=== PATIENT | female | born 1990 | race Caucasian/White ===

== ENCOUNTER 2023-08-02 15:47 | Outpatient (OUT) | payer OTHER, SELFPAY ==
--- NOTE | 2023-08-02 15:50 | US_ITS ---
The [address] [address] Patient Name: TAMICA YOUNG MRN: [id number] date: 1990 Sex: F Assigned Patient Location: US Current Patient Location: Accession/Order Number: [id number] Exam Date: 08/02/2023 16:04 Report Date: 08/03/2023 07:14 At the request of: ANABELLE RUTHERFORD Procedure: US pelvis w/ transvaginal EXAMINATION: US pelvis w/ transvaginal HISTORY: endometriosis N80.9 COMPARISON: No relevant comparison available. FINDINGS: Transabdominal and transvaginal images The uterus is surgically absent The right ovary measures 3.8 x 2.1 x 2.5 cm. Normal color and Doppler flow. Complex avascular structure measuring 2.5 x 1.7 x 2.3 cm. The left ovary measures 3.2 x 1.6 x 2.1 cm. Normal color and Doppler flow No ascites US/US pelvis w/ transvaginal IMPRESSION: 2.5 cm right ovarian lesion, consider complex cyst, hemorrhagic cyst, functional cyst or endometrioma. Electronically authenticated by: ZAKIA FATIMA Date: 08/03/2023 07:14
== END 2023-08-02 15:48 | disposition home or self-care (01) ==
LOC: US 15:47
PROVIDERS: PCP Family Medicine; Visit Provider Obstetrics & Gynecology
DX: N80.9 Endometriosis, unspecified (principal); N94.10 Unspecified dyspareunia; N83.291 Other ovarian cyst, right side
CPT/HCPCS: 76830; 76856

== ENCOUNTER 2024-10-01 07:57 | Outpatient (OUT) | payer OTHER, SELFPAY ==
--- NOTE | 2024-10-01 08:45 | XR_ITS ---
[address] [address] Patient Name: TAMICA YOUNG MRN: [id number] date: 1990 Sex: F Assigned Patient Location: [facility] Current Patient Location: [facility] Accession/Order Number: [id number] Exam Date: 10/01/2024 10:01 Report Date: 10/01/2024 10:02 At the request of: ANABELLE RUTHERFORD DO Procedure: XR chest 2V XR chest 2V 10/01/2024 8:48 AM SIGNS AND SYMPTOMS: ^Preop exam ^N PROTOCOL: Frontal and lateral graphs of the chest COMPARISON: 09/15/2022 FINDINGS: The trachea is midline. The heart and mediastinal structures are within normal limits. The lung parenchyma is clear. The bony thorax is intact. There is evidence of prior cholecystectomy. XR/XR chest 2V IMPRESSION: No acute cardiopulmonary pathology. Impression dictated by: Drew England M.D. 10/01/2024 10:02 AM Dictation Location: [place] [address] Electronically authenticated by: [id number] Y Date: 10/01/2024 10:02
== END 2024-10-01 07:58 | disposition home or self-care (01) ==
PROVIDERS: PCP Family Medicine; Visit Provider Obstetrics & Gynecology
DX: Z01.810 Encounter for preprocedural cardiovascular examination (principal); N80.9 Endometriosis, unspecified; R10.2 Pelvic and perineal pain; N83.201 Unspecified ovarian cyst, right side; Z90.710 Acquired absence of both cervix and uterus
CPT/HCPCS: 71046

== ENCOUNTER 2024-10-05 08:57 | Day surgery (SDC) | payer OTHER, SELFPAY ==
[2024-10-01 08:41] VITALS: BP 111/76; PULSE 80; TEMP 36.4; O2SAT 99; BMI 24.1
[2024-10-05] VITALS (19 sets, daily range): BP systolic 94–120; BP diastolic 53–79; PULSE 51–100; TEMP 36.2–36.4; O2SAT 96–100; BMI 24.2
[2024-10-05 09:05] LABS: Basophils Percent Auto 0.6 % (0.2-2.0); Eosinophils Absolute Auto 0.1 10^3/uL (0.0-0.7); Eosinophils Percent Auto 2.6 % (0.9-7.0); Hematocrit 40.9 % (36.0-48.0); Hemoglobin 13.6 g/dL (12.0-16.0); Immature Granulocytes Abs Auto 0.01 10^3/uL (0.00-0.03); Immature Granulocytes Pct Auto 0.2 % (0.0-0.5); Lymphocytes Absolute Auto 1.6 10^3/uL (1.2-3.8); Lymphocytes Percent Auto 33.4 % (20.5-60.0); Mean Corpuscular HGB Conc 33.3 g/dL (29.9-35.2); Mean Corpuscular Hemoglobin 32.2 pg (26.7-34.0); Mean Corpuscular Volume 96.9 fL (81.0-99.0); Mean Platelet Volume 11.1 fL (9.5-13.5); Monocytes Absolute Auto 0.3 10^3/uL (0.3-0.8); Neutrophils Absolute Auto 2.6 10^3/uL (1.4-6.5); Neutrophils Percent Auto 56.2 % (43.0-75.0); Platelet Count 181 10^3/uL (150-450); Red Blood Count 4.22 10^6/uL (4.20-5.40); Red Cell Distribution Width 12.1 % (11.0-15.0); White Blood Count 4.7 10^3/uL (4.0-11.0)
--- NOTE | 2024-10-05 12:34 | PM.ONB ---
Brief Operative Note Date of procedure: 10/05/24 Pre-op diagnosis general: pelvic pain, ho endometriosis Post-op diagnosis: same as pre-op Procedure: NAME OF PROCEDURE: [diagnostic laparoscopy , extensive lysis of omental adhesions from the anterior abdominal wall] PROCEDURE: The patient was taken back to the Operating Room where she was placed in dorsal lithotomy position after given general anesthesia. The patient was prepped and draped in normal sterile fashion. A sponge stick was placed into the patient's vagina. Attention was turned to the patient's abdomen, where a small umbilical incision was made. The fascia was tented using Agnieszka clamps and the fascia was entered sharply. Confirmation of intraabdominal placement of the 10 mm port was confirmed under direct visualization using a laparoscope. The patient's abdomen was then insufflated using CO2 gas with approximately 4 liters. A second port was placed left laterally, this was done under direct visualization with a 5 mm port. Survey of the patient's abdomen demonstrated normal liver and gallbladder. Survey of the patient's pelvic anatomy demonstrated normal appearing rt and lt ovary and absent tubes and uterus No endometrial implants could be noted, no evidence of any pelvic disease was seen, normal appearing pelvic cavity. extenive adhesions of the omentum to the anterior abdominal wall, lysis of adhesions with ligasure, excellent hemostasis, All instruments were removed from the patient's abdomen. The patient's abdomen was deinsufflated of CO2 gas. The patient tolerated the procedure well. Sponge stick was removed from the patient's vagina. The patient's infraumbilical fascia was closed using #0 Vicryl on a GI needle. The patient's skin was closed laterally and infraumbilically using 4-0 Vicryl. The patient tolerated the procedure well. Sponge, lap and needle counts were correct x 2. The patient was taken to Recovery Room in stable condition. Anesthesia: TONJAA Surgeon: Kendrick Almonte Diversified Crops Farmer: Karishma Becerra Estimated blood loss (mL): 5 Pathology: none sent Condition: stable Disposition: PACU Urinary Catheter Management Urinary Catheter Management Urethral: Cath placed during this visit: no
[2024-10-05] MEDS: HYDROMORPHONE HCL 0.5 MG/0.5 ML SYRINGE IV ×2 (12:58→13:22)
[2024-10-05] MEDS: LACTATED RINGER'S SOLUTION 1,000 ML 50 ML IV (13:36)
[2024-10-05] MEDS: ONDANSETRON PF 4 MG/2 ML VIAL IV (14:34)
--- NOTE | 2024-10-05 14:35 | PC.NURSE ---
patient became nauseated gave dose of zofran as ordered by Dr. Gallardo
--- NOTE | 2024-10-05 14:54 | PC.NURSE ---
Patient states she feels a little better with the nausea. But not great. She is eating saltine crackers to see if that helps. Patient already urinated as ordered by Dr. Almonte. Pain is tolerable.
--- NOTE | 2024-10-05 15:33 | PC.NURSE ---
At discharge patient's nausea had improved enough for her to be discharged at her request.
== END 2024-10-05 15:15 | disposition home or self-care (01) ==
PROVIDERS: PCP Family Medicine; Visit Provider Obstetrics & Gynecology
PROC: (CPT 840; principal; 2024-10-05 10:10)
DX: N80.9 Endometriosis, unspecified (principal); R10.2 Pelvic and perineal pain; K66.0 Peritoneal adhesions (postprocedural) (postinfection); N99.820 Postprocedural hemorrhage of a genitourinary system organ or structure following a genitourinary system procedure; Z48.89 Encounter for other specified surgical aftercare; Z90.710 Acquired absence of both cervix and uterus; F17.290 Nicotine dependence, other tobacco product, uncomplicated; Z90.49 Acquired absence of other specified parts of digestive tract; Z98.51 Tubal ligation status; N83.201 Unspecified ovarian cyst, right side; F11.11 Opioid abuse, in remission
CPT/HCPCS: 49329; 36415; 85025; 99281; J0131; J1100; J1171; J1885; J2250; J2405; J2704; J3010

== ENCOUNTER 2024-10-05 17:21 | Emergency (ER) | payer OTHER, SELFPAY ==
--- OUTSIDE RECORDS SUMMARY | 2024-10-05 17:27 | XMS_ITS | Encounter Summary ---
Author Organization [facility] Address [address] [place] [address] Care Team Providers Care Button Tufter Name Role Phone Steph Gasca MD Primary Care Provider [phone] Encounter Details Date Type Department Care Team (Late Contact Info) Description 09/20/2024 Abstract [facility] [address] [place] [phone] Catherine Escalera LPN Social History Tobacco Use Types Packs/Day Years Used Date Smoking Tobacco: Never Smokeless Tobacco: Never Comments:Vapes thc Alcohol Use Standard Drinks/Week Comments Yes 1 (1 standard drink = 0.6 oz pure alcohol) caffeine intake: 2 cups of coffee daily Humiliation, Afraid, Rape, and Kick questionnair e Answer Date Recorded Within the last year, have y ou been afraid of your partner or ex-partner? No 05/25/2023 Within the last year, have y ou been humiliated or emotionally abused in other ways by your partner or ex-partner? No Within the last year, have y ou been kicked, hit, slapped, or otherwise physically hurt by your partner or ex-partner? No 05/25/2023 Within the last year, have y ou been raped or forced to have any kind of sexual activity by your partner or ex-partner? No 05/25/2023 Social Connection and Isolat ion Panel [NHANES] Answer Date Recorded In a typical week, how many times do you talk on the phone with family, friends, or neighbors? More than three times a week 05/25/2023 How often do you get togethe r with friends or relatives? Once a week 05/25/2023 How often do you attend chur ch or voodoo services? Never 05/25/2023 Do you belong to any clubs o r organizations such as anabaptist groups, unions, fraternal or athletic groups, or school groups? Yes 05/25/2023 How often do you attend meet ings of the clubs or organizations you belong to? More than 4 times per year 05/25/2023 Are you , , di vorced, , never , or living with a partner? Living with partner 05/25/2023 AUDIT-C Answer Date Recorded Q1: How often do you have a drink containing alc ohol? 2-4 times a month 05/25/2023 Q2: How many drinks containi ng alcohol do you have on a typical day when you are drinking? 1 or 2 05/25/2023 Q3: How often do you have si x or more drinks on one occasion? Less than monthly 05/25/2023 Overall Financial Resource Strain (CARDIA) Answe r Date Recorded How hard is it for you to pa y for the very basics like food, housing, medical care, and heating? Not hard at all 05/25/2023 PHQ-2 Answer Date Recorded Patient Health Questionnaire-2 Score 3 08/16/2023 [facility] - Occupational Stress Questionnaire Answer Date Recorded Do you feel stress - tense, restless, nervous, or anxious, or unable to sleep at night because your mind is troubled all the time - these days? To some extent 05/25/2023 Exercise Vital Sign Answer Date Recorde d On average, how many days pe r week do you engage in moderate to strenuous exercise (like a brisk walk)? 3 days 05/25/2023 On average, how many minutes do you engage in exercise at this level? 30 min 05/25/2023 Hunger Vital Sign Answer Date Recorded Within the past 12 months, y ou worried that your food would run out before you got the money to buy more. Never true 05/25/19 24 Within the past 12 months, t he food you bought just didn't last and you didn't have money to get more. Never true 05/25/2023 PRAPARE - Transportation Answer Date Re corded In the past 12 months, has l ack of transportation kept you from medical appointments or from getting medications? No 05/16 In the past 12 months, has l ack of transportation kept you from meetings, work, or from getting things needed for daily living? No 05/25/2023 Housing Stability Vital Sign Answer Timoteo e Recorded In the last 12 months, was t here a time when you were not able to pay the mortgage or rent on time? No 05/25/2023 In the last 12 months, how many places have you lived? 1 05/25/2023 In the last 12 months, was t here a time when you did not have a steady place to sleep or slept in a fci (including now)? No 05/25/2023 Comments No Sex and Gender Information Value Date Recorded Sex Assigned at Female 10/12/2022 5:39 AM EDT Legal Sex Female 6:36 PM EDT Gender Identity Female 07/28/2022 6:36 PM EDT Sexual Orientation Straight 10/12/2022 5: 39 AM EDT documented as of this encounter Plan of Treatment Upcoming Encounters Date Type Department Care Team (Late st Contact Info) Description 10/22/2024 1:30 PM EDT Office Visit [facility] [address] [place] [phone] Shante Garcia PA [address] [facility] [address] [place], [place] [phone] documented as of this encounter Visit Diagnoses Not on filedocumented in this encounter Additional Health Concerns Assessment Noted Time PHQ-9 Depression Total Score: 9 08/16/19 24 1:00 PM EDT documented as of this encounter Care Teams Button Tufter Relationship Specialty Start Date End Date Steph Gasca MD [address] [place] [address] PCP - General Family Medicine 09/21/22 documented as of this encounter
--- OUTSIDE RECORDS SUMMARY | 2024-10-05 17:27 | XMS_ITS | Encounter Summary ---
Author Organization [facility] Address [address] [place] [address] Care Team Providers Care Orchard Sprayer Name Role Phone Roshni Henson NP Unavailable [phone] Steph Gasca MD Primary Care Provider [phone] Reason for Visit * Reason Comments Med Refill Encounter Details Date Type Department Care Team ([facility] Contact Info) Description 04/29/2023 Refill [facility] [address] [place] [phone] Drea Trevino NP [address] [place], [place] [phone] Anxiety (Primary Dx) Social History Tobacco Use Types Packs/Day Years Used Date Smoking Tobacco: Never Smokeless Tobacco: Never Alcohol Use Standard Drinks/Week Comments Not Currently 0 (1 standard drink = 0.6 oz pur e alcohol) Comments Unknown Sex and Gender Information Value Date Recorded Sex Assigned at Female 10/12/2022 5:39 AM EDT Legal Sex Female 6:36 PM EDT Gender Identity Female 07/28/2022 6:36 PM EDT Sexual Orientation Straight 10/12/2022 5: 39 AM EDT documented as of this encounter Miscellaneous Notes * Telephone Encounter - Drea Trevino NP - 04/29/2023 12:23 PM EST Due for wellness, please schedule documented in this encounter Plan of Treatment Upcoming Encounters Date Type Department Care Team (Late st Contact Info) Description 10/22/2024 1:30 PM EDT Office Visit [facility] [address] [place] [address] Shante Garcia PA [address] [facility] [place] [address] documented as of this encounter Visit Diagnoses Diagnosis Anxiety- Primary Anxiety state, unspecified documented in this encounter Care Teams Orchard Sprayer Relationship Specialty Start Date End Date Roshni Henson NP [address] [facility] [place] [address] PCP - Medical [place] [employer] 10/14/22 12/06/23 Steph Gasca MD [address] [facility] [place] [address] PCP - General Family Medicine 09/21/22 documented as of this encounter
--- OUTSIDE RECORDS SUMMARY | 2024-10-05 17:27 | XMS_ITS | Encounter Summary ---
Author Organization [facility] Address [address] [place] [address] Care Team Providers Care Refinery Operator Assistant Name Role Phone Sheri Razo MD Primary Care Provider [phone] Encounter Details Date Type Department Care Team (Late st Contact Info) Description 10/01/2024 Clinisync Result Encounter [facility] External Department Unsolicited Kendrick Almonte, DO [address] [facility] [place] [address] Social History Tobacco Use Types Packs/Day Years [...] often do you attend chur ch or zoroastrianism services? Never 05/25/2023 Do you belong to any clubs o r organizations such as muslim groups, unions, fraternal or athletic groups, or [...] Recorded Patient Health Questionnaire-2 Score 3 08/16/2023 [facility] - Occupational Stress Questionnaire Answer Date Recorded [...] the money to buy more. Never true 01/10/20 24 Within the past 12 months, t [...] place to sleep or slept in a retirement (including now)? No 05/25/2023 Comments No Sex [...] EDT Office Visit [facility] OB [address] [facility] [place] [phone] Shante Garcia PA [address] [facility] [place] [address] documented as of this encounter Procedures Procedure Name Priority Date/Time Associated Diagnosis Comments XR CHEST 2V 10/01/2024 10:02 AM EDT documented in this encounter Results * XR CHEST 2V (10/01/2024 10:02 AM EDT) Anatomical Region Laterality Modality Other 10/01/2024 10:0 2 AM EDT Narrative 10/01/2024 10:11 AM EDT The [address] [address] XRay Report Signed Patient: DEBBIE YOUNG MR#: [id number] : 1990 Acct:[id number] Age/Sex: 34 / F ADM Date: 10/01/24 Loc: [facility] Attending Dr: Kendrick Almonte D.O. Ordering Physician: Kendrick Almonte D.O. Date of Service: 10/01/24 Procedure(s): XR chest 2V Accession Number(s): [id number] cc: Kendrick Almonte D.O.; SHERI RAZO The [address] [address] Patient Name: DEBBIE YOUNG MRN: [id number] date: 1990 Sex: F Assigned Patient Location: [facility] Current Patient Location: [facility] Accession/Order Number: [id number] Exam Date: 10/01/2024 10:01 Report Date: 10/01/2024 10:02 At the request of: KENDRICK ALMONTE DO Procedure: XR chest 2V XR chest 2V 10/01/2024 8:48 AM SIGNS AND SYMPTOMS: Preop exam N PROTOCOL: Frontal and lateral graphs of the chest COMPARISON: 09/15/2022 FINDINGS: The trachea is midline. The heart and mediastinal structures are within normal limits. The lung parenchyma is clear. The bony thorax is intact. There is evidence of prior cholecystectomy. XR/XR chest 2V IMPRESSION: No acute cardiopulmonary pathology. Impression dictated by: Drew England M.D. 10/01/2024 10:02 AM Dictation Location: [place] [address] Electronically authenticated by: [id number] Y Date: 10/01/2024 10:02 Dictated By: Drew England M.D. Signed By: 10/01/24 1011 DD/ 1002 TD/TT: Frame Welder Cargo Utility Trailers: Procedure Note Radiology, Radiologist, - 10/01/2024 The [place] [id number] XRay Report Signed Patient: DEBBIE YOUNG RMR#: [id number] : 1990Acct:[id number] Age/Sex: 34 / FADM Date: 10/01/24 Loc: PST Attending Dr: Kendrick Almonte D.O. Ordering Physician: Kendrick Almonte D.O. Date of Service: 10/01/24 Procedure(s): XR chest 2V Accession Number(s): [id number] cc: Kendrick Almonte D.O.; SHERI RAZO [place] [address] Patient Name: DEBBIE YOUNG MRN: [id number] date: 1990 Sex: F Assigned Patient Location: [facility] Current Patient Location: [facility] Accession/Order Number: [id number] Exam Date: 10/01/2024 10:01 Report Date: 10/01/2024 10:02 At the request of: KENDRICK ALMONTE DO Procedure: XR chest 2V XR chest 2V 10/01/2024 8:48 AM SIGNS AND SYMPTOMS: Preop exam N PROTOCOL: Frontal and lateral graphs of the chest COMPARISON: 09/15/2022 FINDINGS: The trachea is midline. The heart and mediastinal structures are within normal limits. The lung parenchyma is clear. The bony thorax is intact. There is evidence of prior cholecystectomy. XR/XR chest 2V IMPRESSION: No acute cardiopulmonary pathology. Impression dictated by: Drew England M.D. 10/01/2024 10:02 AM Dictation Location: [place] [address] Electronically authenticated by: [id number] Y Date: 0:02 Dictated By: Drew England M.D. Signed By:10/01/24 1011 DD/ 1002 TD/TT: Frame Welder Cargo Utility Trailers: us Kendrick Almonte DO [facility] Final Result documented in this encounter Visit Diagnoses Not on filedocumented in this encounter Additional Health Concerns Assessment Noted Time PHQ-9 Depression Total Score: 9 08/16/19 24 1:00 PM EDT documented as of this encounter Care Teams Refinery Operator Assistant Relationship Specialty Start Date End Date Sheri Razo MD [address] [place] [address] PCP - General Family Medicine 09/21/22 documented as of this encounter
--- OUTSIDE RECORDS SUMMARY | 2024-10-05 17:27 | XMS_ITS | Encounter Summary ---
Author Organization [facility] Address [address] [place] [address] Care Team Providers Care Otolaryngologist Name Role Phone Henson Roshni Lei STRETCHING MACHINE TENDER FRAME Unavailable [phone] Steph Gasca MD Primary Care Provider [phone] Reason for Visit * Reason Comments Med Refill Encounter Details Date Type Department Care Team ([facility] Contact Info) Description 12/04/2023 Refill [facility] [address] [place] [address] Steph Gasca MD [address] [place], [place] [phone] Anxiety Social History Tobacco Use Types Packs/Day Years [...] 05/25/2023 How often do you attend chur or amish services? Never 05/25/2023 Do you belong to any clubs o r organizations such as mandaeism groups, unions, fraternal or athletic groups, or [...] Recorded Patient Health Questionnaire-2 Score 3 08/16/2023 [facility] - Occupational Stress [...] place to sleep or slept in a senior care (including now)? No 05/25/2023 Comments No Sex and Gender Information Value Date Recorded Sex Assigned at Female 10/12/2022 5:39 AM EDT Legal Sex Female 6:36 PM EDT Gender Identity Female 07/28/2022 6:36 PM EDT Sexual Orientation Straight 10/12/2022 5: 39 AM EDT documented as of this encounter Miscellaneous Notes * Telephone Encounter - Iva Cheng MA - 12/05/2023 9:13 AM EDT Approving, but needs appt for additional refills. documented in this encounter Plan of Treatment Upcoming Encounters Date Type Department Care Team (Late st Contact Info) Description 10/22/2024 1:30 PM EDT Office Visit [facility] OB [address] [phone] Shante Garcia PA [address] [facility] [place] [address] documented as of this encounter Visit Diagnoses Diagnosis Anxiety Anxiety state, unspecified documented in this encounter Additional Health Concerns Assessment Noted Time PHQ-9 Depression Total Score: 9 08/16/19 24 1:00 PM EDT documented as of this encounter Care Teams Otolaryngologist Relationship Specialty Start Date End Date Roshni Henson NP [address] [place] [address] PCP - Medical [place] [employer] 10/14/22 12/06/23 Steph Gasca MD [address] [place], [place] [phone] PCP - General Family Medicine 09/21/22 documented as of this encounter
--- OUTSIDE RECORDS SUMMARY | 2024-10-05 17:27 | XMS_ITS | Encounter Summary ---
Author Organization [facility] Address [address] [place] [address] Care Team Providers Care Supervisor Hospitality House Name Role Phone Roshni Henson LINE PRODUCER Unavailable [phone] Sheri Razo MD Primary Care Provider [phone] Encounter Details Date Type Department Care Team ([facility] Contact Info) Description 08/03/2023 Clinisync Result Encounter [facility] External Department Unsolicited Kendrick Almonte, DO [address] [facility] [address] Armaan De La [place], [place] [id number] Social History Tobacco Use Types Packs/Day Years Used Date Smoking Tobacco: Never Smokeless Tobacco: Never Alcohol Use Standard Drinks/Week Comments Not Currently 0 (1 standard drink = 0.6 oz pur e alcohol) Humiliation, Afraid, Rape, and Kick questionnair e [...] often do you attend chur ch or mosque services? Never 05/25/2023 Do you belong to any clubs o r organizations such as mosque groups, unions, fraternal or athletic groups, or [...] and heating? Not hard at all 05/25/2023 [facility] - [...] place to sleep or slept in a care home (including now)? No 05/25/2023 Comments No Sex [...] EDT Office Visit [facility] BCP OB [address] [facility] [place] [address] Shante Garcia PA [address] [place] [address] documented as of this encounter Procedures Procedure Name Priority Date/Time Associated Diagnosis Comments US PELVIS W/ TRANSVAGINAL 08/03/2023 7:14 AM EDT documented in this encounter Results * US PELVIS W/ TRANSVAGINAL (08/03/2023 7:14 AM EDT) Anatomical Region Laterality Modality Other 08/03/2023 7:14 AM EDT Narrative 08/03/2023 7:17 AM EDT The [place] [id number] Ultrasound Report Signed Patient: DEBBIE YOUNG MR#: [id number] : 1990 Acct:[id number] Age/Sex: 33 / F ADM Date: 08/02/23 Loc: US Attending Dr: Kendrick Almonte D.O. Ordering Physician: Kendrick Almonte D.O. Date of Service: 08/02/23 Procedure(s): US pelvis w/ transvaginal Accession Number(s): [id number] cc: Kendrick Almonte D.O.; SHERI RAZO The [place] [id number] Patient Name: DEBBIE YOUNG MRN: [id number] date: 1990 Sex: F Assigned Patient Location: US Current Patient Location: Accession/Order Number: [id number] Exam Date: 08/02/2023 16:04 Report Date: 08/03/2023 07:14 At the request of: KENDRICK ALMONTE Procedure: US pelvis w/ transvaginal EXAMINATION: US pelvis w/ transvaginal HISTORY: endometriosis N80.9 COMPARISON: No relevant comparison available. FINDINGS: Transabdominal and transvaginal images The uterus is surgically absent The right ovary measures 3.8 x 2.1 x 2.5 cm. Normal color and Doppler flow. Complex avascular structure measuring 2.5 x 1.7 x 2.3 cm. The left ovary measures 3.2 x 1.6 x 2.1 cm. Normal color and Doppler flow No ascites US/US pelvis w/ transvaginal IMPRESSION: 2.5 cm right ovarian lesion, consider complex cyst, hemorrhagic cyst, functional cyst or endometrioma. Electronically authenticated by: ZAKIA FATIMA Date: 08/03/2023 07:14 Dictated By: Zakia Fatima M.D. Signed By: 08/03/2317 DD/ TD/TT: Taker Away: Procedure Note Radiology, Radiologist, MD - 08/03/[address] [address] Ultrasound Report Signed Patient: DEBBIE YOUNG RMR#: [id number] : 1990Acct:[id number] Age/Sex: 33 / FADM Date: 08/02/23 Loc: US Attending Dr: Kendrick Almonte D.O. Ordering Physician: Kendrick Almonte D.O. Date of Service: 08/02/23 Procedure(s): US pelvis w/ transvaginal Accession Number(s): [id number] cc: Kendrick Almonte D.O.; SHERI RAZO The [address] [address] Patient Name: DEBBIE YOUNG MRN: [id number] date: 1990 Sex: F Assigned Patient Location: US Current Patient Location: Accession/Order Number: [id number] Exam Date: 08/02/2023 16:04 Report Date: 08/03/2023 07:14 At the request of: KENDRICK ALMONTE Procedure: US pelvis w/ transvaginal EXAMINATION: US pelvis w/ transvaginal HISTORY: endometriosis N80.9 COMPARISON: No relevant comparison available. FINDINGS: Transabdominal and transvaginal images The uterus is surgically absent The right ovary measures 3.8 x 2.1 x 2.5 cm. Normal color and Dopplerflow. Complex avascular structure measuring 2.5 x 1.7 x 2.3 cm. The left ovary measures 3.2 x 1.6 x 2.1 cm. Normal color and Doppler flow No ascites US/US pelvis w/ transvaginal IMPRESSION: 2.5 cm right ovarian lesion, consider complex cyst, hemorrhagic cyst, functional cyst or endometrioma. Electronically authenticated by: ZAKIA FATIMA Date: 08/03/2023 07:14 Dictated By: Zakia Fatima M.D. Signed By:08/03/23 0717 DD/ TD/TT: Taker Away: us Kendrick Almonte DO [facility] Final Result documented in this encounter Visit Diagnoses Not on filedocumented in this encounter Care Teams Supervisor Hospitality House Relationship Specialty Start Date End Date Roshni Henson NP [address] [place] [address] PCP - Medical [employer] 10/14/22 12/06/23 Sheri Razo MD [address] [place], [place] [id number] PCP - General Family Medicine 09/21/22 documented as of this encounter
--- OUTSIDE RECORDS SUMMARY | 2024-10-05 17:27 | XMS_ITS | Clinical Summary ---
Author Organization [facility] Address [address] [place] [address] Care Team Providers Care Rotary Furnace Tender Name Role Phone Steph Razo MD Primary Care Provider [phone] Allergies Active Allergy Reactions Criticality Noted Date Comments Ciprofloxacin Rash Low 10/04/2022 Codeine GI intolerance 10/04/2022 Penicillins 12/29/2016 Medications valACYclovir (Valtrex) 500 MG tabletIndicatio ns:HSV (herpes simplex virus) infection Take 1 tablet (500 mg) by mouth Daily 30 tablet 11 01/30/2024 Active hydrOXYzine HCl (Atarax) 25 MG tabletIndicatio ns:Anxiety Take 1 tablet (25 mg) by mouth 2 (two) times a day as needed for anxiety 60 tablet 01/31/2024 Active Active Problems Problem Noted Date Diagnosed Date Acquired hallux valgus of left foot 10/24/2022 Cigarette nicotine dependence without complicati on 10/24/2022 Opiate abuse, episodic 10/24/2022 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 without prior episode 10/24/2022 Anxiety, generalized 10/24/2022 Vaginal burning 10/24/2022 History of hysterectomy 10/24/2022 Abnormal Papanicolaou smear of vagina 10/24/2022 Herpes 10/24/2022 Encounters Date Type Department Care Team Description 10/05/2024 Clinisync Result Encounter [facility] External Department Unsolicited Provider, Generic External Data 10/01/2024 Clinisync Result Encounter [facility] External Department Unsolicited Anabelle Almonte DO 09/20/20[address] [facility] [address] [place] [address] Jw CatherineBETSY 09/17/2024 2:50 PM EDT Consult [facility] [address] [place] [address] Anabelle Almonte DO Pre-op examination; Endometriosis; Pelvic pain in female; Right ovarian cyst; H/O: hysterectomy 09/17/2024 2:00 PM EDT Ancillary Procedure [facility] [address] [place] [address] Endometriosis; Right ovarian cyst; Dyspareunia in female 09/14/2024 Travel 08/27/2024 8:40 AM EDT Office Visit [facility] [address] [place] [address] Anabelle Almonte DO Endometriosis; Right ovarian cyst; Dyspareunia in female 08/27/2024 Bamboo flowsheet [facility] [address] [place] [address] Anabelle Almonte DO 08/22/2024 Travel from Last 3 Months Family History Medical History Relation Name Comments Alcohol abuse Father Diabetes Maternal Grandmother Cancer Mother breast, lung Heart disease Mother Relation Name Status Comments Father Maternal Grandmother Mother Alive Social History Tobacco Use Types Packs/Day Years [...] 05/25/2023 How often do you attend chur [email or web address] or pentecostal services? Never 05/25/2023 Do you belong to any clubs o r organizations such as pentecostal groups, unions, fraGrowlife or athletic groups, or school groups? Yes [...] Recorded Patient Health Questionnaire-2 Score 3 08/16/2023 [facility] - Occupational Stress [...] place to sleep or slept in a alf (including now)? No 05/25/2023 Comments No Sex and Gender Information Value Date Recorded Sex Assigned at Female 10/12/2022 5:39 AM EDT Legal Sex Female 6:36 PM EDT Gender Identity Female 07/28/2022 6:36 PM EDT Sexual Orientation Straight 10/12/2022 5: 39 AM EDT Last Filed Vital Signs Vital Sign Reading Time Taken Comments Blood Pressure 118/74 09/17/2024 2:42 PM EDT Pulse 86 08/16/2023 1:37 PM EDT Temperature - - Respiratory Rate - - Oxygen Saturation 98% 08/16/2023 1:37 PM EDT Inhaled Oxygen Concentration - - Weight 67.5 kg (148 lb 12.8 oz) 09/17/2024 2:42 PM EDT Height 165.1 cm (5' 5 ) 08/16/2023 1:37 PM EDT Body Mass Index 24.76 08/16/2023 1:37 PM EDT Plan of Treatment Upcoming Encounters Date Type Department Care Team (Late st Contact Info) Description 10/22/2024 1:30 PM EDT Office Visit [facility] BCP OB [address] [facility] [place] [address] Shante Garcia PA [address] [facility] [place] [address] Health Maintenance Due Date Last Done Comments Influenza Vaccine (Season Ended) 2025 06/21/2017, 02/18/2016, 05/15/2013 Cervical Cancer Screening Discontinued Pap Smear Discontinued 09/07/2022 HPV/Cotest Discontinued Procedures Procedure Name Priority Date/Time Associated Diagnosis Comments ALL CBC WITH AUTO DIFF Routine 10/05/2024 9:02 AM EDT XR CHEST 2V 10/01/2024 10:02 AM EDT US PELVIC COMPLETE W/ TV Routine 09/17/2024 2:17 PM EDT Endometriosis Right ovarian cyst Dyspareunia in female POCT URINALYSIS DIPSTICK Routine 08/27/2024 9:00 AM EDT Endometriosis POCT , URINE Routine 08/27/2024 9:00 AM EDT Endometriosis PAP SMEAR Routine 09/07/2022 12:00 AM EDT from Last 3 Months or Most Recently Relevant to Health Maintenance Results * ALL CBC WITH AUTO DIFF (10/05/2024 9:02 AM EDT) TBH WBC 4.7 4.0 - 11.0 10 3/uL TBH TBH RBC 4.22 4.20 - 5.40 10 6/uL TBH TBH HGB 13.6 12.0 - 16.0 g/dL TBH TBH HCT 40.9 36.0 - 48.0 % TBH TBH MCV 96.9 81.0 - 99.0 fL TBH TBH MCH 32.2 26.7 - 34.0 pg TBH TBH MCHC 33.3 29.9 - 35.2 g/dL TBH TBH RDW 12.1 11.0 - 15.0 % TBH TBH PLT 181 150 - 450 10 3/uL TBH TBH MPV 11.1 9.5 - 13.5 fL TBH NEUTROPHILS PERCENT AUTO 56.2 43.0 - 75.0 % TBH LYMPHOCYTES PERCENT AUTO 33.4 20.5 - 60.0 % TBH MONOCYTES PERCENT AUTO 7.0 1.7 - 12.0 % TBH TBH EO % 2.6 0.9 - 7.0 % TBH BASOPHILS PERCENT AUTO 0.6 0.2 - 2.0 % TBH IMMATURE GRANULOCYTES PCT AUTO 0.2 0.0 - 0.5 % TBH NEUTROPHILS ABSOLUTE AUTO 2.6 1.4 - 6.5 10 3/uL TBH LYMPHOCYTES ABSOLUTE AUTO 1.6 1.2 - 3.8 10 3/uL TBH MONOCYTES ABSOLUTE AUTO 0.3 0.3 - 0.8 10 3/uL TBH TBH EO # 0.1 0.0 - 0.7 10 3/uL TBH BASOPHILS ABSOLUTE AUTO 0.0 0.0 - 0.1 10 3/uL TBH IMMATURE GRANULOCYTES ABS AUTO 0.01 0.00 - 0.03 10 3/uL TBH 10/05/2024 9:02 AM EDT 10/05/2024 9:03 AM EDT Narrative [facility] - 10/05/2024 9:08 AM EDT us Anabelle Almonte DO [facility] Final Result [facility] * XR CHEST 2V (10/01/2024 10:02 AM EDT) Anatomical Region Laterality Modality Other 10/01/2024 10:0 2 AM EDT Narrative 10/01/2024 10:11 AM EDT [address] [address] XRay Report Signed Patient: TAMICA YOUNG MR#: [id number] : 1990 Acct:[id number] Age/Sex: 34 / F ADM Date: 10/01/24 Loc: [facility] Attending Dr: Anabelle Almonte D.O. Ordering Physician: Anabelle Almonte D.O. Date of Service: 10/01/24 Procedure(s): XR chest 2V Accession Number(s): [id number] cc: Anabelle Almonte D.O.; STEPH RAZO The [address] [address] Patient Name: TAMICA YOUNG MRN: [id number] date: 1990 Sex: F Assigned [facility] Current Patient Location: [facility] Accession/Order Number: [id number] Exam Date: 10/01/2024 10:01 Report Date: 10/01/2024 10:02 At the request of: ANABELLE ALMONTE DO Procedure: XR chest 2V XR [...] England M.D. 10/01/2024 10:02 AM Dictation Location: [place] [address] Electronically authenticated by: [id number] Y Date: 10/01/2024 10:02 Dictated By: Drew England M.D. Signed By: 10/01/24 1011 DD/ 1002 TD/TT: Supervisor Shipfitters: Procedure Note Radiology, Radiologist, MD - 10/01/[address] [address] XRay Report Signed Patient: TAMICA YOUGN RMR#: [id number] : 1990Acct:[id number] Age/Sex: 34 / FADM Date: 10/01/24 Loc: PST Attending Dr: Anabelle Almonte D.O. Ordering Physician: Anabelle Almonte D.O. Date of Service: 10/01/24 Procedure(s): XR chest 2V Accession Number(s): [id number] cc: Anabelle Almonte D.O.; STEPH RAZO [place] [id number] Patient Name: TAMICA YOUNG MRN: [id number] date: 1990 Sex: F Assigned Patient Location: SURGOUT [facility] Accession/Order Number: [id number] Exam Date: 10/01/2024 10:01 Report Date: 10/01/2024 10:02 At the request of: ANABELLE ALMONTE DO Procedure: XR chest 2V XR [...] England M.D. 10/01/2024 10:02 AM Dictation Location: [place] [address] Electronically authenticated by: [id number] Y Date: 0:02 Dictated By: Drew England M.D. Signed By:10/01/24 1011 DD/ 1002 TD/TT: Supervisor Shipfitters: us Anabelle Almonte DO [facility] Final Result * US Pelvis w/ TV (09/17/2024 2:17 PM EDT) Anatomical Region Laterality Modality Pelvis Ultrasound 09/19/2024 8:44 AM EDT Narrative 09/19/2024 8:44 AM EDT EXAM: US PELVIC COMPLETE W/ TV HISTORY: Pelvic pain x1 year. Left lower quadrant pain. Endometriosis. History of ovarian cyst. Hysterectomy. A1. x4. Tubal ligation. COMPARISON: None available. TECHNIQUE: Two-dimensional transabdominal grayscale and color Doppler ultrasound imaging of the pelvis was performed. Transvaginal was performed. FINDINGS: UTERUS Surgically absent RIGHT OVARY 2.7 x 1.9 x 2.1 cm The right ovary demonstrates a normal echotexture. There is normal color Doppler flow. LEFT OVARY 3.2 x 2.4 x 3.1 cm The left ovary demonstrates a corpus luteal cyst. There is normal color Doppler flow. No fluid is present within the cul-de-sac. IMPRESSION: 1. Left ovarian corpus luteal cyst. 2. Surgically absent uterus. Interpreted by: Electronically signed by ZULEIKA STEELE II, MD, PHD at 19-Sep-2024 08:42:13 AM [facility] Procedure Note Zuleika Steele MD - 09/19/2024 EXAM: US PELVIC COMPLETE W/ TV HISTORY: Pelvic pain x1 year. Left lower quadrant pain. Endometriosis.History of ovarian cyst. Hysterectomy. A1. x4. Tuballigation. COMPARISON: None available. TECHNIQUE: Two-dimensional transabdominal grayscale and color Dopplerultrasound imaging of the pelvis was performed. Transvaginal wasperformed. FINDINGS: UTERUS Surgically absent RIGHT OVARY 2.7 x 1.9 x 2.1 cm The right ovary demonstrates a normal echotexture. There is normal colorDoppler flow. LEFT OVARY 3.2 x 2.4 x 3.1 cm The left ovary demonstrates a corpus luteal cyst. There is normal colorDoppler flow. No fluid is present within the cul-de-sac. IMPRESSION: 1. Left ovarian corpus luteal cyst. 2. Surgically absent uterus. Interpreted by: Electronically signed by ZULEIKA STEELE II, MD, PHD [id number] 08:42:13 AM [facility] us Anabelle Gage DO IMG US PROCEDURES Final Result * POCT , urine manually resulted (08/27/2024 9:00 AM EDT) Preg Test, Ur Negative Negative Urine 08/27/2024 9:00 AM EDT us Anabelle Gage DO POINT OF CARE TEST ENTER/EDIT OR DERABLES Final Result * (ABNORMAL) POCT urinalysis dipstick manually resulted (08/27/2024 9:00 AM EDT) Color, UA Yellow Clarity, UA Clear Glucose, UA Negative Negative - 1999(110) ++++ mg/dL Bilirubin, UA Negative Negative - 4(70) +++ mg/dL Ketones, UA Positive Negative - 160(16) ++++ mg/dL Comment:Trace Spec Grav, UA 1.030 1 - 1.03 Blood, UA Positive Negative - 50 Byron/mcL Comment:Trace-intact pH, UA 7.0 5 - 9 Protein, UA Negative Negative - 1999(20) ++++ mg/dL Urobilinogen, UA 0.2 0.2 - 12 mg/dL Leukocytes, UA Negative Negative - 500+++ Ignacio/mcL Nitrite, UA Negative Negative - Positive Urine 08/27/2024 9:00 AM EDT Anabelle Gage DO POINT OF CARE TEST ENTER/EDIT OR DERABLES Final Result * Pap Smear (09/07/2022 12:00 AM EDT) Swab Cervical swab / Unknown us Anabelle Gage DO LAB CYTOLOGY ORDERABLES Final Re sult EXTERNAL LAB from Last 3 Months or Most Recently Relevant to Health Maintenance Insurance [employer] Care Teams Rotary Furnace Tender Relationship Specialty Start Date End Date Steph Razo MD [address] [place] [address] PCP - General Family Medicine 09/21/22
--- OUTSIDE RECORDS SUMMARY | 2024-10-05 17:27 | XMS_ITS | Encounter Summary ---
Author Organization [facility] Address [address] [place] [address] Care Team Providers Care Animal Care Supervisor Name Role Phone Steph Gasca MD Primary Care Provider [phone] Encounter Details Date Type Department Care Team ([facility] Contact Info) Description 10/05/2024 Clinisync Result Encounter [facility] External Department Unsolicited Provider, Generic External Data Social History Tobacco Use Types Packs/Day Years [...] any clubs o r organizations such as synagogue groups, unions, fraternal or athletic groups, or [...] Recorded Patient Health Questionnaire-2 Score 3 08/16/2023 [facility] - [...] place to sleep or slept in a longterm (including now)? No 05/25/2023 Comments No Sex [...] EDT Office Visit [facility] BCP OB [address] [place] [address] Shante Garcia PA [address] [facility] [place] [address] documented as of this encounter Procedures Procedure Name Priority Date/Time Associated Diagnosis Comments ALL CBC WITH AUTO DIFF Routine 10/05/2024 9:02 AM EDT documented in this encounter Results * ALL CBC WITH AUTO DIFF [...] [facility] - 10/05/2024 9:08 AM EDT us Kendrick Gage DO [facility] Final Result [facility] documented in this encounter Visit Diagnoses Not on filedocumented in this encounter Additional Health Concerns Assessment Noted Time PHQ-9 Depression Total Score: 9 08/16/19 24 1:00 PM EDT documented as of this encounter Care Teams Animal Care Supervisor Relationship Specialty Start Date End Date Steph Gasca MD [address] [place] [address] PCP - General Family Medicine 09/21/22 documented as of this encounter
[2024-10-05 17:32] VITALS: BP 111/73; PULSE 78; TEMP 36.7; O2SAT 95; BMI 24.1
--- NOTE | 2024-10-05 17:50 | ED.WOUNDLAC1 ---
Documented by User: LASHAWN Bolton 10/05/24 17:59 HPI - Wound/Laceration General Chief Complaint: Recheck/Abnormal Lab/Rx Stated Complaint: POST SURGICAL COMPLICATIONS Time Seen by Provider: 10/05/24 17:38 Source: patient Mode of arrival: walk-in Limitations: no limitations History of Present Illness HPI narrative: 34-year-old female presents to the ER for evaluation of bleeding from her umbilical portal. Patient had a laparoscopic procedure today for her endometriosis. Patient notes she has done well since the procedure but bled through her initial dressing for the umbilical portal. She notes pain is well-controlled but her other portal scar is not bleeding hardly at all. Patient appears in no distress and has no other concerns other than the residual bleeding. Patient tetanus UTD: Yes Associated symptoms: Reports none Treatments prior to arrival: Reports bandage Related Data Home Medications ?Medication ?Instructions ?Recorded ?Confirmed hydroxyzine HCl 25 mg tablet 25 mg PO Q8H PRN anxiety 10/01/24 10/05/24 valacyclovir 500 mg tablet 500 mg PO DAILY 10/01/24 10/05/24 Previous Rx's ?Medication ?Instructions ?Recorded hydrocodone 5 mg-acetaminophen 325 1 tab PO Q4H PRN pain 4 days #16 10/05/24 mg tablet tabs ibuprofen 800 mg tablet 800 mg PO Q8H PRN pain 14 days #40 10/05/24 tabs Allergies Allergy/AdvReac Type Severity Reaction Status Date / Time ciprofloxacin Allergy Rash Verified 10/05/24 17:35 codeine Allergy Vomiting Verified 10/05/24 17:35 Penicillins Allergy Abdominal Verified 10/05/24 17:35 Pain Review of Systems ROS Constitutional Denies: fever, chills or change in weight Ears, nose, mouth, and throat Denies: neck pain Cardiovascular Denies: chest pain, palpitations or edema Respiratory Denies: shortness of breath, cough or wheezing Gastrointestinal Reports: abdominal pain (consistent with recent surgery) Musculoskeletal Denies: back pain or neck pain Integumentary/Breast Denies: rash, itching or redness Neurological Denies: headache Endocrine Denies: excessive urination Hematologic/Lymphatic Denies: easy bruising [facility] Medical History (Updated 10/05/24 @ 17:52 by LASHAWN Bolton) Herpes labialis ?B00.1 - Herpesviral vesicular dermatitis (ICD-10) Depression ?F32.A - Depression, unspecified (ICD-10) Anxiety ?F41.9 - Anxiety disorder, unspecified (ICD-10) Electronic cigarette use ?Z78.9 - Other specified health status (ICD-10) Diarrhea ?R19.7 - Diarrhea, unspecified (ICD-10) Constipation ?K59.00 - Constipation, unspecified (ICD-10) Right ovarian cyst ?N83.201 - Unspecified ovarian cyst, right side (ICD-10) Endometriosis ?N80.9 - Endometriosis, unspecified (ICD-10) Surgical History (Updated 10/01/24 @ 08:28 by Denisse Fowler NP) History of cholecystectomy ?Z90.49 - Acquired absence of other specified parts of digestive tract (ICD-10) History of tubal ligation ?Z98.51 - Tubal ligation status (ICD-10) H/O knee surgery ?Z98.890 - Other specified postprocedural states (ICD-10) History of foot surgery ?Z98.890 - Other specified postprocedural states (ICD-10) History of section ?Z98.891 - History of uterine scar from previous surgery (ICD-10) History of hysterectomy ?Z90.710 - Acquired absence of both cervix and uterus (ICD-10) Family History (Updated 10/01/24 @ 08:28 by Denisse Fowler NP) Other Family history of brain cancer Family history of breast cancer Family history of diabetes mellitus Family history of lung cancer Family history of myocardial infarction Family history of pulmonary embolism Social History (Updated 10/01/24 @ 08:26 by Denisse Fowler NP) Within the past year, how often did you have a drink containing alcohol: monthly or less Smoking status: Former smoker Do you use any of these nicotine containing products: vaping products Non-prescribed substance use: cannabis (any form) 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 Highest level of school completed/degree received: some college, no degree Little interest or pleasure in doing things: not at all Feeling down, depressed, or hopeless: not at all Exam Narrative Exam Narrative: Nurses notes and vital signs reviewed and patient is not hypoxic. General: The patient appears well and in no apparent distress. Patient is resting comfortably on cart. Skin: Warm, dry, no pallor noted. 2 portal scars noted appeared to be closed with either subcuticular or glue there are slight Steri-Strips over top. The umbilical portal has no active bleeding but bloody discharge is noted within the umbilicus and the Steri-Strips are peeling off. The wound was dried with sterile gauze and new Steri-Strips were applied with wound adhesive for secure, a nonadherent dressing was applied over top with bulky gauze and Tegaderm overlapping. Patient ambulatory here with no return of bleeding. Head: Normocephalic, atraumatic Neck: Supple, trachea mid-line, no tenderness, no lymphadenopathy Eye: Pupils are equal, round and reactive to light, EOMI Ears, Nose, Mouth, and Throat: TM are clear, normal light reflex, oral mucosa is moist, no posterior oropharynx erythema or hypertrophy, uvula is mid-line Cardiovascular: Regular Rate and Rhythm Respiratory: Patient is in no distress, no accessory muscle use, lungs are clear to auscultation, no wheezing, rales or rhonchi. Musculoskeletal: normal ROM, no tenderness, no swelling GI: Normal bowel sounds, no tenderness to palpation- expected post op soreness near portals. no masses appreciated. No rebound, guarding, or rigidity noted. Neurological: A&O x4 Psychiatric: Cooperative Constitutional Vital Signs, click to edit/add: Last Vital Signs Temp 98.0 F 10/05/24 17:32 Pulse 78 10/05/24 17:32 Resp 18 10/05/24 17:32 BP 111/73 10/05/24 17:32 Pulse Ox 95 10/05/24 17:32 O2 Del Method Room Air 10/05/24 17:32 Course Vital Signs Vital signs: Vital Signs Temperature 98.0 F 10/05/24 17:32 Pulse Rate 78 10/05/24 17:32 Respiratory Rate 18 10/05/24 17:32 Blood Pressure 111/73 10/05/24 17:32 Pulse Oximetry 95 10/05/24 17:32 Oxygen Delivery Method Room Air 10/05/24 17:32 Temperature 98.0 F 10/05/24 17:32 Pulse Rate 78 10/05/24 17:32 Respiratory Rate 18 10/05/24 17:32 Blood Pressure 111/73 10/05/24 17:32 Pulse Oximetry 95 10/05/24 17:32 Oxygen Delivery Method Room Air 10/05/24 17:32 MDM - Wound/Laceration MDM Narrative Medical decision making narrative: Wound redressed no signs or symptoms of infection no active bleeding. Patient pleased with progress as this was leaking blood earlier since her procedure. She has no further concerns or questions she will keep scheduled follow-up with her FOIL OPERATOR and I did notify them of her presence in the ER and that bleeding has stopped. Patient may return to the ER if any symptoms worsen or new symptoms develop she is to continue her postoperative precautions from discharge earlier today. Patient was thankful. Discharge Plan Discharge Chief Complaint: Recheck/Abnormal Lab/Rx Clinical Impression: Visit for wound check, Post-op bleeding Patient Disposition: Home, Self-Care Time of Disposition Decision: 17:51 Condition: Good Prescriptions / Home Meds: No Action valacyclovir 500 mg tablet 500 mg PO DAILY hydroxyzine HCl 25 mg tablet 25 mg PO Q8H PRN (Reason: anxiety) ibuprofen 800 mg tablet 800 mg PO Q8H PRN (Reason: pain) 14 Days Qty: 40 0RF hydrocodone-acetaminophen 5-325 mg tablet 1 tab PO Q4H PRN (Reason: pain) 4 Days Qty: 16 0RF Print Language: Persian Instructions: Skin Adhesive Strips (ED) Additional Instructions: Keep appt with Dr. Almonte as scheduled. Referrals: Kendrick Almonte DO [Physician, [employer]] - As soon as possible SHERI RAZO [Primary Care Provider, Family Practice] - 1 week Discharge Date/Time: 10/05/24 17:58 Documented by User: Jose Smith MD 10/05/24 19:46 HPI - Wound/Laceration General Chief Complaint: Recheck/Abnormal Lab/Rx Stated Complaint: POST SURGICAL COMPLICATIONS Time Seen by Provider: 10/05/24 17:38 Related Data Home Medications ?Medication ?Instructions ?Recorded ?Confirmed hydroxyzine HCl 25 mg tablet 25 mg PO Q8H PRN anxiety 05/19/25 05/23/25 valacyclovir 500 mg tablet 500 mg PO DAILY 10/01/24 10/05/24 Previous Rx's ?Medication ?Instructions ?Recorded hydrocodone 5 mg-acetaminophen 325 1 tab PO Q4H PRN pain 4 days #16 10/05/24 mg tablet tabs ibuprofen 800 mg tablet 800 mg PO Q8H PRN pain 14 days #40 10/05/24 tabs Allergies Allergy/AdvReac Type Severity Reaction Status Date / Time ciprofloxacin Allergy Rash Verified 10/05/24 17:35 codeine Allergy Vomiting Verified 10/05/24 17:35 Penicillins Allergy Abdominal Verified 10/05/24 17:35 Pain PFSH PFSH Medical History (Updated 10/05/24 @ 17:52 by LASHAWN Bolton) Herpes labialis ?B00.1 - Herpesviral vesicular dermatitis (ICD-10) Depression ?F32.A - Depression, unspecified (ICD-10) Anxiety ?F41.9 - Anxiety disorder, unspecified (ICD-10) Electronic cigarette use ?Z78.9 - Other specified health status (ICD-10) Diarrhea ?R19.7 - Diarrhea, unspecified (ICD-10) Constipation ?K59.00 - Constipation, unspecified (ICD-10) Right ovarian cyst ?N83.201 - Unspecified ovarian cyst, right side (ICD-10) Endometriosis ?N80.9 - Endometriosis, unspecified (ICD-10) Surgical History (Updated 10/01/24 @ 08:28 by Denisse Fowler NP) History of cholecystectomy ?Z90.49 - Acquired absence of other specified parts of digestive tract (ICD-10) History of tubal ligation ?Z98.51 - Tubal ligation status (ICD-10) H/O knee surgery ?Z98.890 - Other specified postprocedural states (ICD-10) History of foot surgery ?Z98.890 - Other specified postprocedural states (ICD-10) History of section ?Z98.891 - History of uterine scar from previous surgery (ICD-10) History of hysterectomy ?Z90.710 - Acquired absence of both cervix and uterus (ICD-10) Family History (Updated 10/01/24 @ 08:28 by Denisse Fowler NP) Other Family history of brain cancer Family history of breast cancer Family history of diabetes mellitus Family history of lung cancer Family history of myocardial infarction Family history of pulmonary embolism Social History (Updated 10/01/24 @ 08:26 by Denisse Fowler NP) Within the past year, how often did you have a drink containing alcohol: monthly or less Smoking status: Former smoker Do you use any of these nicotine containing products: vaping products Non-prescribed substance use: cannabis (any form) 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 Highest level of school completed/degree received: some college, no degree Little interest or pleasure in doing things: not at all Feeling down, depressed, or hopeless: not at all Exam Constitutional Vital Signs, click to edit/add: Last Vital Signs Temp 98.0 F 10/05/24 17:32 Pulse 78 10/05/24 17:32 Resp 18 10/05/24 17:32 BP 111/73 10/05/24 17:32 Pulse Ox 95 10/05/24 17:32 O2 Del Method Room Air 10/05/24 17:32 Course Vital Signs Vital signs: Vital Signs Temperature 98.0 F 10/05/24 17:32 Pulse Rate 78 10/05/24 17:32 Respiratory Rate 18 10/05/24 17:32 Blood Pressure 111/73 10/05/24 17:32 Pulse Oximetry 95 10/05/24 17:32 Oxygen Delivery Method Room Air 10/05/24 17:32 Temperature 98.0 F 10/05/24 17:32 Pulse Rate 78 10/05/24 17:32 Respiratory Rate 18 10/05/24 17:32 Blood Pressure 111/73 10/05/24 17:32 Pulse Oximetry 95 10/05/24 17:32 Oxygen Delivery Method Room Air 10/05/24 17:32 MDM - Wound/Laceration MDM Narrative Medical decision making narrative: Wound redressed no signs or symptoms of infection no active bleeding. Patient pleased with progress as this was leaking blood earlier since her procedure. She has no further concerns or questions she will keep scheduled follow-up with her FOIL OPERATOR and I did notify them of her presence in the ER and that bleeding has stopped. if any symptoms worsen or new symptoms develop she is to continue her postoperative precautions from discharge earlier today. Patient was thankful. I, Dr Smith, have reviewed the above progress note and course of action in the ER; agree with the above. I have personally gone over history and physical, and discussed disposition and treatment plan with the PA. Discharge Plan Discharge Chief Complaint: Recheck/Abnormal Lab/Rx Clinical Impression: Visit for wound check, Post-op bleeding Patient Disposition: Home, Self-Care Time of Disposition Decision: 17:51 Condition: Good Prescriptions / Home Meds: No Action valacyclovir 500 mg tablet 500 mg PO DAILY hydroxyzine HCl 25 mg tablet 25 mg PO Q8H PRN (Reason: anxiety) ibuprofen 800 mg tablet 800 mg PO Q8H PRN (Reason: pain) 14 Days Qty: 40 0RF hydrocodone-acetaminophen 5-325 mg tablet 1 tab PO Q4H PRN (Reason: pain) 4 Days Qty: 16 0RF Print Language: Persian Instructions: Skin Adhesive Strips (ED) Additional Instructions: Keep appt with Dr. Almonte as scheduled. Referrals: Kendrick Almonte DO [Physician, [employer] LOC[employer]] - As soon as possible SHERI RAZO [Primary Care Provider, Family Practice] - 1 week Discharge Date/Time: 10/05/24 17:58
== END 2024-10-05 17:58 | disposition home or self-care (01) ==
PROVIDERS: Emergency Provider Emergency Medicine; PCP Family Medicine
DX: N99.820 Postprocedural hemorrhage of a genitourinary system organ or structure following a genitourinary system procedure (principal); Z48.89 Encounter for other specified surgical aftercare
CPT/HCPCS: 99281